=== PATIENT | female | born 1990 | race Caucasian/White ===

== ENCOUNTER 2019-03-17 23:25 | Emergency (ER) | payer BC | END 2019-03-17 23:30 | disposition left against medical advice (07) | LOC: ER 23:25 | DX: Z53.21 Procedure and treatment not carried out due to patient leaving prior to being seen by health care provider (principal) ==

== ENCOUNTER 2019-03-19 15:20 | Emergency (ER) | payer BC ==
--- NOTE | 2019-03-19 16:29 | ER Document Report ---
Addendum entered and electronically signed by SHERI GRIGGS PA-C 03/19/19 16:30: Course - Re-evaluation Re-evalutation: 03/19/19 16:30 Blood type is O+ by our record history. - Vital Signs Vital signs: Temp Pulse Resp BP Pulse Ox 98.1 F 80 16 123/63 100 03/19/19 15:35 03/19/19 15:35 03/19/19 15:35 03/19/19 15:35 03/19/19 15:35 Original Note: ED Medical Screen (RME) - General Chief Complaint: OB Problem (<20wks) Stated Complaint: VAGINAL BLEEDING Primary Care Provider: LEANA BRANNON MD [Primary Care Provider] - Follow up as needed TRAVEL OUTSIDE OF THE [place] IN LAST 30 DAYS: No - HPI Notes: 03/19/19 16:27 Patient is a 28-year-old female with a history of blood clotting disorder and on aspirin who presents as a 7-8-week female with history of 2 gestational sacs who presents for evaluation for pelvic cramping. Patient was told that she may have been missed. She started bleeding about a week ago and her doctor thought that she may be miscarrying so they placed her on Cytotec 2 days ago. Patient states that she took 1 dose, but was trying to get another ultrasound performed which she was able to get later that day which told her that there are two heartbeats present. Patient states that she has not taken any more of the Cytotec and continues to cramp, but does not have any other bleeding. Patient states that she was told she cannot reverse the medication at this time. Patient is here for evaluation and another ultrasound. Denies ALTAMIRANO, fever, neck pain, URI, CP, SOB, dysuria, back pain, or rash. I have treated and performed a rapid initial assessment of this patient. A comprehensive ED assessment and evaluation of the patient, analysis of test results and completion of medical decision making process will be conducted by additional ED providers. PHYSICAL EXAMINATION: GENERAL: Well-appearing, well-nourished and in no acute distress. A&Ox4. Answers questions appropriately. LUNGS: Breath sounds clear to auscultation bilaterally and equal. No wheezes rales or rhonchi. HEART: Regular rate and rhythm without murmurs, rubs, gallops. ABDOMEN: Soft, nondistended abdomen. No guarding, no rebound. Normal bowel sounds present. No CVA tenderness bilaterally. Grossly nontender (cannot elicit thorough abd exam w/o bed, however). - Related Data Allergies/Adverse Reactions: Penicillins Allergy (Mild, Verified 03/19/19 15:30) rash morphine [Morphine] Allergy (Verified 03/19/19 15:30) adhesive tape Adverse Reaction (Verified 03/19/19 15:30) triamcinolone Adverse Reaction (Verified 03/19/19 15:30) Past Medical History Past Surgical History: Reports: Hx Section, Hx Gynecologic Surgery - laparoscopy, d&c - Immunizations Immunizations up to date: Yes Hx Diphtheria, Pertussis, Tetanus Vaccination: Yes Physical Exam - Vital signs Vitals: Temp Pulse Resp BP Pulse Ox 98.1 F 80 16 123/63 100 03/19/19 15:35 03/19/19 15:35 03/19/19 15:35 03/19/19 15:35 03/19/19 15:35 Course - Vital Signs Vital signs: Temp Pulse Resp BP Pulse Ox 98.1 F 80 16 123/63 100 03/19/19 15:35 03/19/19 15:35 03/19/19 15:35 03/19/19 15:35 03/19/19 15:35 Doctor's Discharge - Discharge Referrals: LEANA BRANNON MD [Primary Care Provider] - Follow up as needed
[2019-03-19 16:52] LABS: APPEARANCE,URINE CLEAR; BILIRUBIN,URINE NEGATIVE (NEGATIVE); COLOR,URINE STRAW; GLUCOSE, URINE NEGATIVE (NEGATIVE); KETONES,URINE NEGATIVE (NEGATIVE); LEUKOCYTE ESTERASE,URINE SMALL (NEGATIVE); NITRITE,URINE NEGATIVE (NEGATIVE); PROTEIN,URINE NEGATIVE (NEGATIVE); URINE SPECIFIC GRAVITY 1.009; UROBILINOGEN,URINE NEGATIVE mg/dL (<2.0)
--- NOTE | 2019-03-19 17:36 | RADIOLOGY REPORT (SQ) ---
EXAM DESCRIPTION: U/S OB TRANSVAGINAL W/O DOP COMPLETED DATE/TIME: 03/19/2019 5:20 pm REASON FOR STUDY: preg, cramping COMPARISON: None. TECHNIQUE: Transvaginal static and realtime grayscale images acquired of the pelvis. Additional negrita cted spectral and color Doppler images recorded. All images stored on PACs. bHCG: Pending. CLINICAL DATES: 7 weeks 0 days LIMITATIONS: None. FINDINGS: ULTRASOUND EGA: 6 weeks 4 days ULTRASOUND ELEUTERIO: 11/08/2019 Fetus A: CRL: 7 mm FHR: 125 beats per minute. AMNIOTIC FLUID: Adequate amount. PLACENTA: Not yet developed due to early gestation. SUBCHORIONIC BLEED: Yes SIZE OF BLEED: 10 x 4 mm Fetus B: CRL: 7 mm FHR: 121 beats per minute. AMNIOTIC FLUID: Adequate amount. PLACENTA: Not yet developed due to early gestation. SUBCHORIONIC BLEED: No. SIZE OF BLEED: Not applicable. UTERUS: No masses. No anomalies. CERVICAL LENGTH: 2.8 cm Closed. RIGHT ADNEXA: Normal ovary with normal vascular flow. No adnexal free fluid. No adnexal masses. LEFT ADNEXA: Normal ovary with normal vascular flow. No adnexal free fluid. No adnexal masses. FREE FLUID: None. OTHER: No other significant finding. IMPRESSION: LIVING INTRAUTERINE TWIN . EGA 6 weeks 4 days Trimester of : First trimester - 0 to 13 weeks. TECHNICAL DOCUMENTATION: JOB ID: [id number] 2010 [employer]- All Rights Reserved Reading location - IP/workstation name: [email or web address]
[2019-03-19 19:39] LABS: ABSOLUTE BASOPHILS # (AUTO) 0.1 10^3/uL (0.0-0.2); ABSOLUTE EOSINOPHILS # (AUTO) 0.2 10^3/uL (0.0-0.6); ABSOLUTE LYMPHOCYTES (AUTO) 1.8 10^3/uL (0.5-4.7); ABSOLUTE MONOCYTES (AUTO) 0.4 10^3/uL (0.1-1.4); ABSOLUTE NEUT (AUTO) 6.2 10^3/uL (1.7-8.2); BASOPHILS % (AUTO) 0.6 % (0-2); HEMATOCRIT 39.8 % (36.0-47.0); HEMOGLOBIN 13.3 g/dL (12.0-15.5); LYMPHOCYTES % (AUTO) 20.4 % (13-45); MEAN CORPUSCULAR HEMOGLOBIN 30.7 pg (27.0-33.4); MEAN CORPUSCULAR HGB CONC 33.5 g/dL (32.0-36.0); MEAN CORPUSCULAR VOLUME 92 fl (80-97); MONOCYTES % (AUTO) 5.2 % (3-13); PLATELET COUNT 279 10^3/uL (150-450); RED BLOOD COUNT 4.34 10^6/uL (3.72-5.28); RED CELL DISTRIBUTION WIDTH 12.7 % (11.5-14.0); SEGMENTED NEUTROPHILS % (AUTO) 71.8 % (42-78); TOTAL CELLS COUNTED % (AUTO) 100 %; WHITE BLOOD COUNT 8.6 10^3/uL (4.0-10.5)
[2019-03-19] MEDS ORDERED: HYDROXYZINE PAMOATE 25 MG CAPSULE PO ONE (19:40)
--- NOTE | 2019-03-19 19:46 | ER Document Report ---
ED GI/ - General Chief Complaint: OB Problem (<20wks) Stated Complaint: VAGINAL BLEEDING Time Seen by Provider: 03/19/19 16:31 Notes: Patient is a 28-year-old female with a history of MTHFR, endometriosis, and uterine fibroids who presents to the emergency department with a chief complaint of upper abdominal pain and . Patient is a . Patient states that her last menstrual period was January 29, 2019. Patient states she was seen by her [employer] SUPERVISOR Dr. Kishore Doshi in [place] and confirmed that she was . Patient states that last week she developed vaginal bleeding and called her [employer] SU[employer]OR to request a ultrasound as she has had miscarriages in the past. Patient states that her [employer] SUPERVISOR did not perform an ultrasound but stated that she was probably miscarrying and prescribed her Cytotec. Patient states she did go to an outpatient facility where they perform ultrasounds on Wednesday. Patient states she took her first dose of Cytotec orally 200 mg then received a phone call that she had 2 live intrauterine pregnancies. Patient states that she has not had any vaginal bleeding or discharge since receiving the first dose of Cytotec on Wednesday. Patient states she only took 1 dose. Patient states that she has had an upper abdominal cramping that feels like contractions throughout the weekend. Patient states this is worse when standing or sitting upright. Patient states she has not taken any medication for this. Patient does take an 81 mg baby aspirin daily for her clotting disorder. TRAVEL OUTSIDE OF THE [place] IN LAST 30 DAYS: No - Related Data Allergies/Adverse Reactions: Penicillins Allergy (Mild, Verified 03/19/19 15:30) rash morphine [Morphine] Allergy (Verified 03/19/19 15:30) adhesive tape Adverse Reaction (Verified 03/19/19 15:30) Past Medical History - General Information source: Patient - Social History Smoking Status: Never Smoker Frequency of alcohol use: None Drug Abuse: None Family History: Reviewed & Not Pertinent Patient has suicidal ideation: No Patient has homicidal ideation: No - Past Medical History Cardiac Medical History: Reports: None Pulmonary Medical History: Reports: None EENT Medical History: Reports: None Neurological Medical History: Reports: None Endocrine Medical History: Reports: None Renal/ Medical History: Reports: None. Denies: Hx Peritoneal Dialysis Malignancy Medical History: Reports: None GI Medical History: Reports: None Musculoskeletal Medical History: Reports None Skin Medical History: Reports None Psychiatric Medical History: Reports: None Traumatic Medical History: Reports: None Infectious Medical History: Reports: None Past Surgical History: Reports: Hx Section, Hx Gynecologic Surgery - laparoscopy, d&c - Immunizations Immunizations up to date: Yes Hx Diphtheria, Pertussis, Tetanus Vaccination: Yes Review of Systems - Review of Systems Constitutional: No symptoms reported EENT: No symptoms reported Cardiovascular: No symptoms reported Respiratory: No symptoms reported Gastrointestinal: See HPI Genitourinary: No symptoms reported Female Genitourinary: No symptoms reported Musculoskeletal: No symptoms reported Skin: No symptoms reported Hematologic/Lymphatic: No symptoms reported Neurological/Psychological: No symptoms reported Physical Exam - Vital signs Vitals: Temp Pulse Resp BP Pulse Ox 98.1 F 80 16 123/63 100 03/19/19 15:35 03/19/19 15:35 03/19/19 15:35 03/19/19 15:35 03/19/19 15:35 Interpretation: Normal - Notes Notes: GENERAL: Well-appearing, well-nourished and in no acute distress. HEAD: Atraumatic, normocephalic. EYES: Pupils equal round and reactive to light, extraocular movements intact, sclera anicteric, conjunctiva are normal. ENT: TMs normal, nares patent, oropharynx clear without exudates. Moist mucous membranes. NECK: Normal range of motion, supple without lymphadenopathy or JVD. LUNGS: Breath sounds clear to auscultation bilaterally and equal. No wheezes rales or rhonchi. HEART: Regular rate and rhythm without murmurs, rubs or gallops. ABDOMEN: Soft, epigastric and RUQ tenderness, normoactive bowel sounds. No guarding, no rebound. No masses appreciated. BACK: No cervical, thoracic, lumbar midline tenderness. No saddle anesthesia, normal distal neurovascular exam. GENITOURINARY: Deferred. EXTREMITIES: Normal range of motion, no pitting or edema. No clubbing or cyanosis. NEUROLOGICAL: Cranial nerves II through XII grossly intact. Normal speech, normal gait. PSYCH: Normal mood, normal affect. SKIN: Warm, Dry, normal turgor, no rashes or lesions noted. Course - Re-evaluation Re-evalutation: 03/19/19 19:41 Patient's OB transvaginal ultrasound shows an estimated gestational age of 6 weeks and 4 days. There is a living intrauterine twin . Fetus a has a heart rate of 125 bpm and fetus B has a heart rate of 121 bpm. There is a subchorionic bleed measuring 10 x 4 mm in fetus A. The cervical length is 2.8 cm and is closed. Patient's right adnexa and left adnexa showed normal ovary wi th normal vascular flow. I did consult with Dr. Emerson with [facility] who is the on-call [employer]OR to discuss the patient's case as she was giving a dose of Cytotec on Wednesday by her [employer]OR for a possible miscarriage. Patient states that she has not had any vaginal bleeding or discharge throughout the weekend. Patient is Rh+. He does want the patient to follow-up with her [employer] SUPERVISOR tomorrow, do not take any more Cytotec as she does have a live intrauterine twin with heartbeats. Patient does not require RhoGam. Due to the patient's complaint of upper abdominal pain he does suggest obtaining a right upper quadrant ultrasound and basic labs to include liver function and lipase. He states that patient is able to have a dose of 25 mg p.o. of Vistaril for at that abdominal cramping. No further recommendations made. I did discuss the recommendations to the patient. I will give her a dose of Vistaril as she has tolerated in the past before during her pregnancies and for the abdominal pain. Patient continues to denied vaginal bleeding or discharge. I did explain the importance of obtaining additional lab work to rule out possible infection, elevated liver enzymes and potential issues with the gallbladder. Patient states at this time she does not want to have an ultrasound of the gallbladder but will stay for the lab work. 03/19/19 20:09 Patient resting comfortably on stretcher and has not received a dose of Vistaril at this time. Patient states she feels comfortable going home. I did inform the patient that her laboratory findings were negative and she did not have a white count, elevated liver enzymes are not elevated lipase to suggest pancr eatitis. Patient states that she does not want the ultrasound feels comfortable going home. I did inform the patient to call her [employer] SUPERVISOR and have a follow-up tomorrow morning with them. I did inform the patient that she had a small amount of leuks in the urine but a very small amount of white blood cells. I did inform the patient to have her [employer]PER[employer]OR checked this as she is not developing a urinary tract infection. - Vital Signs Vital signs: Temp Pulse Resp BP Pulse Ox 98.2 F 65 16 116/68 100 03/19/19 20:24 03/19/19 20:24 03/19/19 20:24 03/19/19 20:24 03/19/19 20:24 - Laboratory Result Diagrams: 03/19/19 16:45 03/19/19 16:45 Laboratory results interpreted by me: 03/19/19 03/19/19 03/19/19 16:30 16:45 16:45 Sodium 135.3 L AST 13 L Beta HCG, Quant 11771.00 H Ur Leukocyte Esterase SMALL H 03/19/19 20:53 Beta quant 99,660. - Diagnostic Test Radiology reviewed: Reports reviewed Discharge - Discharge Clinical Impression: Upper abdominal pain Intrauterine normal Qualifiers: Trimester: first trimester Qualified Code(s): Z34.91 - Encounter for supervision of normal , unspecified, first trimester Twin gestation in first trimester Qualifiers: Multiple gestation type: unspecified Qualified Code(s): O30.001 - Twin , unspecified number of placenta and unspecified number of amniotic sacs, first trimester Condition: Stable Disposition: HOME, SELF-CARE Additional Instructions: Today you were seen in the emergency department for upper abdominal pain and pr egnancy. Your ultrasound did show a live intrauterine twin . Both baby A and baby B have visible heartbeats. I did give you a copy of your ultrasound read. Do not take any additional doses of Cytotec. Please follow-up with your [employer] SUPERVISOR tomorrow. Please return to the emergency department for any concerning signs or symptoms to include severe abdominal pain, uncontrollable nausea vomiting or diarrhea, fever, vaginal bleeding or discharge or any other concerning signs or symptoms. Your lab work was unremarkable. We did offer you a right upper quadrant ultrasound to rule out involvement of the gallbladder but at this time you politely declined and will follow up with your doctor tomorrow. Please return if the symptoms get worse. Please take a vitamin daily, drink plenty of fluids, if you are prescribed any medications please discuss this with your [employer]PERVISOR prior to continuing the medications as they could potentially be harmful for your babies. Abdominal Pain There are many causes of abdominal pain. Pain can mean a serious problem requiring surgery (such as appendicitis). It can also be an innocent problem that goes away on its own (such as a viral infection). Often, time must pass to determine the cause of pain. The physician does not feel that hospitalization is necessary, at present. Things may change within the next 24 hours. Call the doctor or come back for re- examination if any problems occur, such as: (1) Pain that becomes more severe, steady, or becomes concentrated in one specific area. Also, pain that is more severe with movement or coughing. (2) Vomiting that persists or becomes more frequent. (3) Blood in the vomitus, urine, or bowel movements. Blood in the stool may have a tarry or black appearance. (4) Shaking chills or fever greater than 100 degrees F. (5) The abdomen becomes more distended or swollen. (6) Bowel movements cease. (7) Failure to improve as expected.
[2019-03-19 20:00] LABS: ALANINE AMINOTRANSFERASE 16 U/L (9-52); ALKALINE PHOSPHATASE 54 U/L (38-126); ANION GAP 9 (5-19); ASPARTATE AMINO TRANSFERASE 13 U/L (14-36); BILIRUBIN,DIRECT 0.1 mg/dL (0.0-0.4); BILIRUBIN,TOTAL 0.2 mg/dL (0.2-1.3); BLOOD UREA NITROGEN 11 mg/dL (7-20); CALCIUM 9.1 mg/dL (8.4-10.2); CARBON DIOXIDE 23 mmol/L (22-30); CHLORIDE 103 mmol/L (98-107); GLUCOSE 81 mg/dL (75-110); LIPASE 102.1 U/L (23-300); POTASSIUM 3.9 mmol/L (3.6-5.0); SODIUM 135.3 mmol/L (137-145); TOTAL PROTEIN 6.7 g/dL (6.3-8.2)
[2019-03-19 20:29] VITALS: BP 116/68
== END 2019-03-19 20:29 | disposition home or self-care (01) ==
LOC: ER 15:20
DX: O26.891 Other specified pregnancy related conditions, first trimester (principal); R10.10 Upper abdominal pain, unspecified; R10.816 Epigastric abdominal tenderness; R10.811 Right upper quadrant abdominal tenderness; O30.001 Twin pregnancy, unspecified number of placenta and unspecified number of amniotic sacs, first trimester; O20.8 Other hemorrhage in early pregnancy; O99.111 Other diseases of the blood and blood-forming organs and certain disorders involving the immune mechanism complicating pregnancy, first trimester; D68.9 Coagulation defect, unspecified; Z79.82 Long term (current) use of aspirin; Z87.59 Personal history of other complications of pregnancy, childbirth and the puerperium; Z88.0 Allergy status to penicillin; Z88.5 Allergy status to narcotic agent
CPT/HCPCS: 36415; 76817; 80053; 81001; 83690; 84702; 85025; 99284

== ENCOUNTER 2019-04-02 23:16 | Emergency (ER) | payer BC ==
[2019-04-02 23:20] VITALS: BP 129/80
== END 2019-04-03 00:45 | disposition left against medical advice (07) ==
LOC: ER 23:16
DX: Z53.21 Procedure and treatment not carried out due to patient leaving prior to being seen by health care provider (principal)